=== PATIENT | female | born 1955 | race Two or more races ===

== ENCOUNTER → 2024-08-04 | Emergency (ER) | payer OTHER ==
[~2024-08-04] VITALS: Ht 157.5 cm; Wt 63.0 kg
[~2024-08-04] MED LIST: 0.9 % SODIUM CHLORIDE 1,000 ML IV ONE; FAMOtidine 10 MG/ML (4ML VIAL) IV ONE; ONDANSETRON HCL 2 MG/ML VIAL IV ONE; PEPCID AC20 MG PO; ZOFRAN8 MG PO
[2024-08-04 17:17] LABS: HEMATOCRIT 40.9 % (36.0-45.00); HEMOGLOBIN 13.8 g/dL (12.0-15.00); MEAN CELL VOLUME 91.5 fL (80.00-100.00); MEAN CORPUSCULAR HEMOGLOBIN 30.9 pg (27.00-32.0); MEAN CORPUSCULAR HGB CONC 33.7 g/dl (32.0-36.0); PLATELET COUNT 232 K/uL (150-450); RED BLOOD COUNT 4.47 M/uL (4.00-6.00); RED CELL DISTRIBUTION WIDTH 12.6 % (11.5-14.5)
[2024-08-04 17:28] LABS: URINE APPEARANCE Cloudy; URINE BILIRRUBIN Negative (NEGATIVE); URINE BLOOD Moderate; URINE COLOR Dark Yellow; URINE GLUCOSE Negative (NEGATIVE); URINE LEUKOCYTE Negative; URINE NITRATE Negative; URINE PROTEIN 30 (NEGATIVE)
[2024-08-04 17:29] LABS: URINE BACTERIA 97.9 uL (0.0-1933); URINE EPITHELIAL CELLS 22.6 uL (0.0-38.8); URINE RBC 85.5 uL (0.0-20.8); URINE WBC 18.6 uL (0.0-23.2)
[2024-08-04 17:40] LABS: ALBUMIN 3.9 gm/dL (3.4-5.0); BILIRUBIN TOTAL 0.9 mg/dL (0.3-1.2); CALCIUM 9.2 mg/dL (8.5-10.1); CREATININE SERUM 0.8 mg/dL (0.55-1.02); GFR 71.12; POTASSIUM 3.74 mEq/L (3.5-5.1); TOTAL PROTEIN 7.9 gm/dL (6.4-8.2)
[2024-08-04 17:42] LABS: URINE CAST 0.44 uL (0.0-1.40); URINE CRYSTALS FEW /HPF; URINE KETONE 40 (NEGATIVE)
[2024-08-04 17:43] LABS: URINE MUCUS HEAVY
== END | disposition home or self-care (01) ==
LOC: ER 15:07
PROVIDERS: General Practice
DX: R11.10 Vomiting, unspecified (principal)
CPT/HCPCS: 36415; 71045; 93005; 96365; 96366; 99283; J2405; J3490; J7030

== ENCOUNTER 2025-07-02 18:02 | Emergency (ER) | payer OTHER ==
[~2025-07-02] VITALS: Ht 157.5 cm; Wt 64.9 kg
[~2025-07-02 18:02] MED LIST changes: -0.9 % SODIUM CHLORIDE 1,000 ML IV ONE; -FAMOtidine 10 MG/ML (4ML VIAL) IV ONE; -ONDANSETRON HCL 2 MG/ML VIAL IV ONE
[2025-07-02 18:50] VITALS: O2SAT 99
[2025-07-02] MEDS ORDERED: ACETAMINOPHEN 500 MG GEL..CAP PO ONE ×2 (19:30→19:45)
[2025-07-02] MEDS ORDERED: NIFEDIPINE 10 MG CAPSULE PO ONE ×2 (19:30→19:45)
[2025-07-02 20:21] LABS: BASO % 0.5 % (0.1-1.2); EOS # 0.11 (0.04-0.54); EOS % 1.4 % (0.7-7.0); LYMPH # 2.06 (1.18-3.74); LYMPH % 25.5 % (19.3-53.1); MEAN PLATELET VOLUME 9.30 fl (9.4-12.4); MONO # 0.57 (0.24-0.82); MONO % 7.1 % (4.7-12.5); NEUT # 5.29 (1.56-6.13); NEUT % 65.4 % (34.0-71.1); RED CELL DISTRIBUTION WIDTH 11.6 % (11.6-14.4)
[2025-07-02 20:59] LABS: ALT/SGPT 17.0 U/L (12-78); AST/SGOT 20.0 U/L (15-37); BILIRUBIN TOTAL 0.73 mg/dL (0.3-1.2); BUN CREA RATIO 18.0 (7.0-25.0); CREATININE SERUM 0.74 mg/dL (0.55-1.02); GFR 77.59; GLOBULINA 3.3 G/DL (2.4-3.5); GLUCOSE FASTING 116.0 mg/dL (65-100); OSMOLALITY SERUM 279.0 MOSM/KG (275-295)
[2025-07-02] MEDS ORDERED: IBU400 MG PO (23:06)
[2025-07-02] MEDS ORDERED: NORVASC2.5 M1 PO (23:06)
[2025-07-02] MEDS ORDERED: PEPCID AC20 MG PO (23:06)
[2025-07-02] MEDS ORDERED: KETOROLAC TROMETHAMINE 60 MG VIAL IM ONE ×2 (23:15→23:19)
[2025-07-02 23:45] VITALS: BP 140/70
== END 2025-07-02 23:47 | disposition home or self-care (01) ==
LOC: ER 18:03
PROVIDERS: General Practice
DX: I16.1 Hypertensive emergency (principal); I10 Essential (primary) hypertension
CPT/HCPCS: 36415; 70450; 93005; 96372; 99284; J1885